=== PATIENT | male | born 1990 | race Two or more races ===

== ENCOUNTER 2025-04-27 20:34 | Emergency (ER) | payer SELFPAY ==
[2025-04-27 20:40] VITALS: BP 146/107
[2025-04-27] MEDS: AUGMENTIN 875 MG/125 MG 1 TABLET PO (21:57)
--- NOTE | 2025-04-27 22:46 | ED.SKININJ ---
HPI-Injury
General
Chief Complaint: Bite
Source: patient and aerial photograph interpreter (friend of patient by phone. NO Chinese translators available at language line)
Exam Limitations: none
Time Seen by Provider: 04/27/25 20:55
Nursing documentation reviewed up to this point in time: agreed with
History of Present Illness-Injury
Is this injury a work related problem?: No
Is pt an associate of [facility]?: No
Initial Injury comments:
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 Dog is UTD with rabies vaccine as per pt but he will recheck to confirm. Has abrasions and a puncture to left forearm. Injury occured tonight
Past History
Past History
ED Past Medical History: None
ED Past Surgical History: None
Review of Systems
Review of Systems
Allergies reviewed?: Yes
All Other Systems: ROS reviewed and negative except as documented in HPI and ROS
Constitutional: Reports no symptoms
EENT: Reports no symptoms
Respiratory: Reports no symptoms
Cardiac: Reports no symptoms
ABD/GI: Reports no symptoms
Musculoskeletal: Reports no symptoms
Skin: Reports other (dog bite left proximal forearm)
Neurological: Reports no symptoms
Psychiatric: Reports no symptoms
Skin Exam
Bite
Left proximal forearm:
Type: animal
Skin has: abrasions but intact (multiple superficial abrasions, 1 puncture)
Surrounding area around bite has: no evidence of erythema
Distal skin color and temperature: normal-warm & good color
Normal distal neurovascular exam: Yes
Phy Exam
General Physical Exam
General Presentation: well appearing and no apparent distress
General age: appears stated age
General Skin: warm and dry
General Habitus: normal
General Mental: alert
General Hydration: appears well hydrated
Musculoskeletal Exam
Musculoskeletal Exam: full ROM and neuro vasc intact
Skin Exam
Skin Exam: normal color, warm/dry, no rash and other (dog bite left proximal forearm. Multiple superficial abrasions, 1 puncture woumd. no erythema or swelling. Full ROM to LUE)
Psychiatric Exam
Psychiatric Exam: normal mood/affect
Course
Orders/Labs/Results
Orders:
Orders
04/27/25 21:49
Amoxicillin 875 mg/Clav 125 mg [Augmentin 875 mg/125 mg] 1 tablet PO NOW STA
Vital Signs
Initial and Last Documented VS:
Initial Vital Signs
Temp Pulse Resp BP Pulse Ox
98.4 F 116 15 146/107 99
04/27/25 20:40 04/27/25 20:40 04/27/25 20:40 04/27/25 20:40 04/27/25 20:40
Last Documented Vital Signs
Temp Pulse Resp BP Pulse Ox
98.4 F 116 15 146/107 99
04/27/25 20:40 04/27/25 20:40 04/27/25 20:40 04/27/25 20:40 04/27/25 20:40
*Pulse Oximetry
SaO2: 99
Oxygen Mode of Delivery: Room air
Patient hypoxic: no
*Critical Care Note
Total Time (30-74mins, 75-104mins- exclusive of procedures): Not Applicable
Update Note
Update Note:
Patient to ED for eval of dog bite to left proximal forearm. Dog is UTD as per patient but will recheck with land reclamation specialist. He sustained multiple abrasions to site, 1 puncture wound. NO wound closure needed. He is UTD with tdap. Placed on augment
prophylactically. 1st dose given in ED. WIll discharge home, follow up with PCP. Given instructions on s/s toreturn to ED and he is agreeable to plan
ED Attending Note
-
Portions of this chart may have been created with voice recognition software.� Occasional wrong word or��sound alike� substitutions may have occurred due to the inherent limitations of voice recognition software.
Discharge Plan
Departure
Patient Disposition: Home (Routine Discharge)
Date of Disposition: 04/27/25
Time of Disposition: 21:50
Patient with high blood pressure during this ER visit?: No
Condition: Good
Covid-19: Not Applicable
Discharge Problem:
Dog bite
Instructions: Animal Bites (DC), Wound Care (DC)
Prescriptions:
New
amoxicillin-pot clavulanate 875-125 mg tablet
1 tab PO BID Qty: 14 0RF
Activity Restrictions/Additional Instructions:
FOllow up with your family doctor.
Interventions
Interventions:
*Risk Screen - Suicide Last Done: 04/27/25 20:40
*General Assessment Last Done: 04/27/25 20:40
*Neglect/Abuse Screening Last Done: 04/27/25 20:40
*ED- Fall Risk Assessment Last Done: 04/27/25 20:53
*ED COVID-19 Vaccine History Last Done: 04/27/25 20:53
*Nursing Disposition Last Done: 04/27/25 22:00
ED-Skin Assessment Last Done: 04/27/25 20:54
Discharge Date and Time
Discharge Date/Time: 04/27/25 22:01
Print Language: CZECH
== END 2025-04-27 22:01 | disposition home or self-care (01) ==
LOC: EMR 20:34
PROVIDERS: EMERGENCY PHYSICIAN Emergency Medicine
DX: S50.812A Abrasion of left forearm, initial encounter (principal); S51.832A Puncture wound without foreign body of left forearm, initial encounter; W54.0XXA Bitten by dog, initial encounter
CPT/HCPCS: 99282